=== PATIENT | female | born 2000 | race Caucasian/White ===

== ENCOUNTER 2021-03-10 11:07 | Day surgery (SDC) | payer OTHER ==
[~2021-03-10] VITALS: Ht 167.6 cm; Wt 59.3 kg
[~2021-03-10 11:07] MED LIST: ALBU8.5H8 INH; [UNRECOGNIZED DRUG - OTHER] PO
[2021-03-10 12:07] VITALS: BP 110/70
[2021-03-10] MEDS ORDERED: CHLORHEXIDINE 15 ML UDC ONE (12:11)
[2021-03-10] MEDS ORDERED: CHLORHEXIDINE 15 ML UDC PO ONE (12:30)
[2021-03-10] MEDS ORDERED: LACTATED RINGERS 1,000 ML IV SCH (12:30)
[2021-03-10 12:36] LABS: HCG UR SG 1.026 (1.003-1.030)
[2021-03-10] MEDS ORDERED: PROPOFOL 50 ML ONE (13:33)
[2021-03-10] MEDS ORDERED: FENTANYL PF 250 MCG/5ML ONE (13:34)
[2021-03-10] MEDS ORDERED: MIDAZOLAM 1 MG/ML, 2ML ONE (13:34)
[2021-03-10] MEDS ORDERED: OXYcodone 5 MG/5 ML ORAL.SOL UDC PO PRN (14:30)
[2021-03-10] MEDS ORDERED: DIPHENHYDRAMINE 50 MG/ML, 1ML IVPush PRN (14:30)
[2021-03-10] MEDS ORDERED: EPHEDRINE 50 MG/ML, 1ML IM PRN (14:30)
[2021-03-10] MEDS ORDERED: ONDANSETRON 2MG/ML, 2ML IVPush PRN (14:30)
[2021-03-10] MEDS ORDERED: EPHEDRINE 50 MG/ML, 1ML IVPush PRN (14:30)
[2021-03-10] MEDS ORDERED: ACETAMINOPHEN 325 MG TABLET PO PRN (14:30)
[2021-03-10] MEDS ORDERED: PROMETHAZINE 25 MG/ML, 1ML IVPush PRN (14:30)
[2021-03-10] MEDS ORDERED: DIAZEPAM 5 MG/ML, 2ML IVPush PRN (14:30)
[2021-03-10] MEDS ORDERED: LABETALOL 5MG/ML, 20ML IV PRN (14:30)
[2021-03-10] MEDS ORDERED: SUCCINYLCHOLINE 20 MG/ML, 10ML ONE (14:50)
[2021-03-10] MEDS ORDERED: ONDANSETRON 2MG/ML, 2ML ONE (14:50)
[2021-03-10] MEDS ORDERED: DEXAMETHASONE 4 MG/ML, 1ML ONE (14:50)
[2021-03-10] MEDS ORDERED: ROCURONIUM 10MG/ML,5ML ONE (14:50)
[2021-03-10] MEDS ORDERED: PROPOFOL 10 MG/ML, 20ML ONE (14:51)
[2021-03-10] MEDS ORDERED: ACETAMINOPHEN 650 MG/20.3 ML UDC ONE (14:52)
[2021-03-10] MEDS ORDERED: FENTANYL PF 100 MCG/2ML ONE (14:52)
[2021-03-10] MEDS ORDERED: OXYcodone 5 MG/5 ML ORAL.SOL UDC ONE (14:52)
[2021-03-10] MEDS: FENTANYL PF 100 MCG/2ML IV PRN ×2 (15:06→15:20)
[2021-03-10] MEDS ORDERED: MEPERIDINE/PF 25MG/ML,1ML ONE (15:07)
[2021-03-10] MEDS: MEPERIDINE/PF 25MG/0.5ML IVPush PRN ×2 (15:14→15:30)
[2021-03-10] MEDS ORDERED: HYDROmorphone 1 MG/ML, 1ML INJ ONE (15:45)
[2021-03-10] MEDS: HYDROmorphone 1 MG/ML, 1ML INJ IVPush PRN ×2 (15:47→15:58)
== END 2021-03-10 17:30 | disposition home or self-care (01) ==
LOC: OR 11:07
PROVIDERS: ATTEND Otolaryngology
DX: J35.01 Chronic tonsillitis (principal); J03.90 Acute tonsillitis, unspecified; G47.30 Sleep apnea, unspecified; R06.83 Snoring; Z20.822 Contact with and (suspected) exposure to COVID-19
CPT/HCPCS: 42821; 81025; 88304; J0330; J1100; J1170; J2175; J2250; J2405; J2704; J3010; J7120; U0003; U0005